=== PATIENT | male | born 1950 | race African-American/Black ===

== ENCOUNTER 2025-02-17 17:16 | Emergency (ER) | payer MEDICARE, MEDICAID ==
[~2025-02-17] VITALS: Ht 175.3 cm; Wt 90.0 kg
[~2025-02-17 17:16] MED LIST: ALLO100T MT; ALLO100T PO; ATOR10TA69 PO; KEPPSOL MT; MEMA5TAB16 PO; METF-1149 MT; MIDO10TA3 MT
[2025-02-17 17:40] VITALS: O2SAT 98
[2025-02-17 19:35] LABS: HEMATOCRIT. 45.8 % (42.0-52.0); HEMOGLOBIN. 15.3 g/dL (14.0-18.0); MEAN PLATELET VOLUME 10.1 fl (7.4-10.4); PLATELET 124 x1000/uL (130-400); RED BLOOD CELL COUNT 4.90 mill/uL (4.7-6.1); RED CELL DISTRIBUTION WIDTH 15.7 % (11.6-14.6)
[2025-02-17 19:47] LABS: CREATININE 0.7 mg/dL (0.6-1.3)
[2025-02-17 19:48] LABS: PROTEIN TOTAL 7.4 g/dL (6.0-8.3); UREA NITROGEN BLOOD 18 mg/dL (9-23)
[2025-02-17 19:49] LABS: ASPARTATE AMINOTRANSFERASE 40 IU/L (<34)
[2025-02-17 19:50] LABS: BILIRUBIN TOTAL 1.0 mg/dL (0.1-1.0)
[2025-02-17] MEDS ORDERED: GABA-1180 MT (20:05)
[2025-02-17] MEDS ORDERED: VALA10002 MT (20:05)
[2025-02-17] MEDS: ACYCLOVIR 400 MG TABLET PO ONE (20:50)
[2025-02-17 20:55] VITALS: TEMP 37.5
[2025-02-17 21:34] LABS: EOSINOPHILS % MANUAL 3.0 % (0.0-5.0); LYMPHOCYTES % MANUAL 34.0 % (20.0-50.0); MONOCYTES % MANUAL 12.0 % (2.0-8.0); NEUTROPHILS % MANUAL 51.0 % (45.0-75.0); PLATELET ESTIMATE DECREASED
[2025-02-18 00:24] VITALS: BP 145/103; PULSE 122; RESP 24; O2SAT 100
== END 2025-02-18 00:27 | disposition home or self-care (01) ==
LOC: ER 17:16
DX: B02.9 Zoster without complications (principal); E11.9 Type 2 diabetes mellitus without complications; E78.00 Pure hypercholesterolemia, unspecified; F03.90 Unspecified dementia, unspecified severity, without behavioral disturbance, psychotic disturbance, mood disturbance, and anxiety; I10 Essential (primary) hypertension; Z79.84 Long term (current) use of oral hypoglycemic drugs; Z93.1 Gastrostomy status; Z86.73 Personal history of transient ischemic attack (TIA), and cerebral infarction without residual deficits; Z79.899 Other long term (current) drug therapy; Z98.890 Other specified postprocedural states
CPT/HCPCS: 36415; 71045; 80053; 85025; 99284